=== PATIENT | female | born 1965 | race African-American/Black ===

== ENCOUNTER 2021-09-02 01:45 | Emergency (ER) | payer OTHER, MEDICAID ==
[~2021-09-02] VITALS: Ht 162.6 cm; Wt 74.8 kg
[2021-09-02] MEDS ORDERED: GABA-490 PO (02:15)
[2021-09-02] MEDS ORDERED: ACHD5005 PO (02:15)
[2021-09-02] MEDS ORDERED: HYDR200T78 PO (02:15)
[2021-09-02] MEDS ORDERED: ASPI-808 PO (02:15)
--- NOTE | 2021-09-02 02:42 | ED Lower Extremity ---
General Chief Complaint: Lower Extremity Stated Complaint: KNEE PAIN Nursing Triage Note: right knee pain after bowling. denies injury. reports chronic right knee pain Source: patient Exam Limitations: no limitations History of Present Illness Date Seen by Provider: Sep 02, 2021 Time Seen by Provider: 02:30 Initial Comments Patient is a 56-year-old female who presents to the emergency department today with a chief complaint of right knee pain. Patient states that she has significant arthritis in her right knee, she sees an orthopedic surgeon at home in [facility] and has injections every 3 months in her right knee. Her last injection was around 14 August. She states she has been at a [employer] tournament this weekend and was bowling and sitting a lot. She states this evening her knee started hurting severely. The pain does not radiate anywhere. She states her she feels like her knee is going to "blow apart". No numbness tingling or weakness to the extremity. No history of blood clot. She has taken extra strength Tylenol without relief of symptoms. No recent fevers or chills. No direct trauma to the knee. All other review of systems reviewed and negative except as stated Onset: this evening Severity: severe Pain/Injury Location: right knee Method of Injury: other Modifying Factors: Worse With Movement Allergies and Home Medications Allergies Coded Allergies: erythromycin base (Verified Allergy, Unknown, 09/02/21) Patient Home Medication List Home Medication List Reviewed: Yes Aspirin (Aspirin) 325 Mg Tablet, 325 MG PO, (Reported) Entered as Reported by: HONG ARMSTRONG on 09/02/21214 Last Action: New Order Gabapentin (Gabapentin) 400 Mg Capsule, Unknown Dose PO, (Reported) Entered as Reported by: HONG ARMSTRONG on 09/02/21214 Last Action: New Order Hydrocodone/Acetaminophen (Hydrocodone-Acetamin 5-325 mg) 5 Mg-325 Mg Tablet, Unknown Dose PO Q4H PRN for PAIN-MODERATE (5-7), (Reported) Entered as Reported by: HONG ARMSTRONG on 09/02/21214 Last Action: New Order Hydroxychloroquine Sulfate (Plaquenil) 200 Mg Tablet, 200 MG PO, (Reported) Entered as Reported by: HONG ARMSTRONG on 09/02/21214 Last Action: New Order Review of Systems Constitutional: see HPI EENTM: no symptoms reported Respiratory: no symptoms reported Gastrointestinal: no symptoms reported Genitourinary: no symptoms reported Musculoskeletal: joint pain (right knee) Psychiatric/Neurological: Anxiety All Other Systems Reviewed Negative Unless Noted: Yes Past [id number] Hx Patient Social History Tobacco Use?: Yes Substance use?: Yes Substance type: Marijuana Alcohol Use?: No Pt feels they are or have been: No Past Medical History Surgery/Hospitalization HX: bilateral carpel tunnel, bilateral foot, tubal, t/a, knee scope. Physical Exam Vital Signs Vital Signs - First Documented 09/02/21 02:02 Temp 37.1 Pulse 75 Resp 22 B/P (MAP) 146/68 (94) Pulse Ox 99 O2 Delivery Room Air Capillary Refill : Less Than 3 Seconds Height, Weight, BMI Height: '" Weight: lbs. oz. kg; 28.00 BMI Method: General Appearance: WD/WN, moderate distress (crying and upset) Cardiovascular: regular rate, rhythm Respiratory: lungs clear, normal breath sounds, no respiratory distress, no accessory muscle use Hips: bilateral hip non-tender, bilateral hip normal inspection, bilateral hip normal range of motion Legs: bilateral leg non-tender, bilateral leg normal inspection, bilateral leg normal range of motion, bilateral leg no evidence of injury Knees: right knee pain, right knee swelling, right knee other (Crepitance with range of motion) Ankles: bilateral ankle non-tender, bilateral ankle normal inspection, bilateral ankle normal range of motion, bilateral ankle no evidence of injury Feet: bilateral foot non-tender, bilateral foot normal inspection, bilateral f oot normal range of motion, bilateral foot no evidence of injury Neurologic/Psychiatric: alert, normal mood/affect, oriented x 3 Skin: normal color, warm/dry, other (No erythema or increased warmth over the right knee. No significant palpable effusion. Distal pulses to the right lower extremity are intact.) Progress/Results/Core Measures Results/Orders My Orders Orders - YULIET MAGUIRE MD Hydrocodone/Apap 7.5/325 Tab (Lortab 7. (09/02/21 02:45) Rx-Hydrocodone/Apap 5-325 Mg (Rx-Vicodin (09/02/21 02:45) Medications Given in ED Current Medications Medications Dose Ordered Sig/Phillip Route Start Time Stop Time Status Last Admin Dose Admin Acetaminophen/ Hydrocodone Bitart 1 ea ONCE ONCE PO 09/02/21 02:45 09/02/21 02:46 DC 09/02/21 02:48 1 EA Acetaminophen/ Hydrocodone Bitart 1 ea Q6H PRN PO 09/02/21 02:45 09/02/21 03:17 DC 09/02/21 02:48 1 EA Vital Signs/I&O 09/02/21 09/02/21 02:02 03:13 Temp 37.1 36.3 Pulse 75 75 Resp 22 16 B/P (MAP) 146/68 (94) 135/69 Pulse Ox 99 98 O2 Delivery Room Air Room Air Blood Pressure Mean: 94 Progress Progress Note : Progress Note Patient given 7.5 mg hydrocodone for pain as well as a take-home pack of pain medications this evening. She is encouraged to follow-up with her orthopedic doctor. Return precautions provided Departure Impression Primary Impression: Chronic pain of right knee Disposition: 01 HOME, SELF-CARE Condition: Stable Departure-Patient Inst. Decision time for Depature: 02:42 Patient Instructions: Chronic Knee Pain (DC) Add. Discharge Instructions: Take the hydrocodone every 6 hour as needed for pain. Elevate the right leg to help lessen swelling. Ice packs for pain. Follow up with your orthopedic doctor next week. YULIET MAGUIRE MD Sep 02, 2021 02:42
[2021-09-02] MEDS ORDERED: HYDROcodone/APAP 7.5 MG/325 MG (LORTAB, LORCET PLUS) TABLET PO ONE (02:45)
[2021-09-02 03:13] VITALS: BP 135/69
== END 2021-09-02 03:14 | disposition home or self-care (01) ==
LOC: ER 01:52
DX: G89.29 Other chronic pain (principal); M25.561 Pain in right knee
CPT/HCPCS: 99283